=== PATIENT | female | born 1945 | race Caucasian/White ===

== ENCOUNTER 2017-09-22 09:28 | Day surgery (SDC) | payer MEDICARE, BC ==
[2017-09-22] MEDS ORDERED: ONDANSETRON 4 MG/2 ML VIAL IV ONE (09:29)
[2017-09-22] MEDS ORDERED: DEXAMETHASONE SOD PHOSPHATE 10 MG INJ IV ONE (09:29)
[2017-09-22] MEDS ORDERED: PROPOFOL 200 MG/20 ML BOTTLE IV ONE (09:29)
[2017-09-22] MEDS ORDERED: SEVOFLURANE 250 ML BOTTLE IH ONE (09:29)
[2017-09-22] MEDS ORDERED: KETOROLAC TROMETHAMINE 30 MG INJ IM ONE (09:29)
[2017-09-22] MEDS ORDERED: IV NORMAL SALINE 1000 ML BAG IV ONE (09:29)
[2017-09-22] MEDS ORDERED: CEFAZOLIN 1 G VIAL MC ONE (09:29)
[2017-09-22] MEDS ORDERED: BUPIVACAINE PF 0.5% 30 ML VIAL ONE (10:32)
[2017-09-22] MEDS ORDERED: POLYMYXIN B SULFATE 500,000 UNITS, BACITRACIN 50,000 UNITS, NORMAL SALINE 20 ML MC ONE ×3 (10:45)
== END 2017-09-22 13:40 | disposition home or self-care (01) ==
LOC: DS 09:28
PROVIDERS: ATTEND Orthopaedic Surgery
DX: G56.02 Carpal tunnel syndrome, left upper limb (principal)
CPT/HCPCS: A4649; A4663; J0690; J1100; J1885; J2405; J3490; J7030